=== PATIENT | female | born 1975 | race Caucasian/White ===

== ENCOUNTER 2022-03-15 15:55 | Emergency (ER) | payer OTHER, SELFPAY ==
--- NOTE | 2022-03-15 16:00 | ED.URI ---
HPI - URI/Sore Throat General Chief Complaint: Upper Respiratory Infection Stated Complaint: Sinus Pain Time Seen by Provider: 03/15/22 16:01 Source: patient and RN notes reviewed History of Present Illness HPI Narrative: Patient is a 46-year-old female who presents the urgent care with complaints of left-sided facial pressure, nasal congestion and postnasal drainage. Patient states that started on the and she saw her primary care doctor on the . Patient states she has been on azithromycin which does not seem to be helping and she only has 1 day left of the medication. Patient denies of any fever, nausea, vomiting or exposure to illness. No other acute complaints. No acute distress noted. Patient aware of the plan of care. Some parts of this dictation were generated by voice recognition software and may contain typographical and/or grammatical inaccuracies. Related Data Home Medications Medication Instructions Recorded Confirmed amiodarone 200 mg PO DAILY 09/05/19 03/15/22 apixaban [Eliquis] 5 mg PO BID 09/05/19 03/15/22 carvedilol 25 mg PO BID 09/05/19 03/15/22 sacubitril-valsartan [Entresto] 1 tablet PO BID 09/05/19 03/15/22 spironolactone 25 mg PO DAILY 09/05/19 03/15/22 dapagliflozin [Farxiga] 10 mg PO DAILY 03/15/22 03/15/22 Allergies Allergy/AdvReac Type Severity Reaction Status Date / Time Penicillins Allergy Mild Rash Verified 03/15/22 16:09 Review of Systems Review of Systems: CONSTITUTIONAL: Denies fever, chills, or sweats. EYES: Denies visual changes, redness, or discharge. ENT: Reports of left-sided facial/sinus pressure, nasal congestion and postnasal drainage CARDIOVASCULAR: Denies chest pain, palpitations, or edema. RESPIRATORY: Denies cough or dyspnea. GASTROINTESTINAL: Denies abdominal pain, nausea, vomiting, or diarrhea. GENITOURINARY: Denies dysuria or hematuria. SKIN: Denies rash or itching. MUSCULOSKELETAL: Denies back pain, joint pain, or myalgia. NEUROLOGIC: Denies headache, numbness, or weakness. All other systems reviewed are negative, except as documented in HPI. [facility] Past Medical History Medical History (Updated 03/15/22 @ 16:25 by BENJAMÍN Dias) A-fib CHF (congestive heart failure) Hypertension Family History Family History (Updated 03/28/17 @ 17:39 by DOCTOR UNKNOWN) Mother Hypertension Father Family history of diabetes mellitus in first degree relative Social History Social History Smoking status: Never smoker Alcohol intake: never Comments At the time of my signature, I reviewed and agree with the nursing past medical, surgical, social, and family history. There is no relevant family history pertinent to the patient complaint. Exam Narrative: GENERAL: This is a well-nourished, well-developed patient, in no apparent distress. HEAD: normocephalic, atraumatic. Left frontal sinus tenderness EYES: PERRL. Sclera clear/white. Vision is grossly intact. EARS: External ears normal, auditory canals clear and without drainage, TMs normal without perforation. Hearing grossly intact. NOSE: External nose normal with no obvious nasal discharge, nares without redness, no rhinorrhea. THROAT: Mucous membranes moist, posterior pharynx clear. Moderate postnasal drainage NECK: Neck supple CARDIOVASCULAR: Regular rate and rhythm without murmurs, gallops, or rubs. RESPIRATORY: Clear to auscultation. Breath sounds equal bilaterally. No wheezes, rales, or rhonchi. SKIN: warm, intact with no suspicious lesions or rash, good texture and turgor. NEURO: awake, alert, and oriented to person, place and time. There were no obvious focal neurologic abnormalities. EXTREMITIES: No clubbing, cyanosis, or edema. Course Course Level of Care: Express Care Visit Vital Signs Vital signs: Vital Signs Temperature 98.7 F 03/15/22 16:02 Pulse Rate 51 L 03/15/22 16:02 Respiratory Rate 16 03/15/22 16:02 Blood Pressure 124/60 03/15/22 16:02 Pulse Oximetry 98 05/2
[2022-03-15 16:02] VITALS: BP 124/60; PULSE 51; RESP 16; TEMP 37.1; O2SAT 98
== END 2022-03-15 16:30 | disposition home or self-care (01) ==
PROVIDERS: Emergency Provider Nurse Practitioner Family; PCP Emergency Medicine
DX: J32.9 Chronic sinusitis, unspecified (principal); I48.91 Unspecified atrial fibrillation; I11.0 Hypertensive heart disease with heart failure; I50.9 Heart failure, unspecified
CPT/HCPCS: 99213; G0463